=== PATIENT | female | born 1965 | race Caucasian/White ===

== ENCOUNTER 2018-09-21 15:59 | Emergency (ER) | payer MEDICARE, MEDICAID ==
[~2018-09-21] VITALS: Ht 152.4 cm; Wt 96.6 kg
--- NOTE | 2018-09-21 16:30 | NUR ---
PT BIB PA WITH A C/O PAIN WITH URINATION AND C/O NECK PAIN. PT WAS TRIAGED AND TAKEN TO ER 13. PT WAS PLACED ON THE MONITOR AND CONTINUOUS PULSE OX. URINE SAMPLE WAS OBTAINED.
[2018-09-21 16:56] LABS: APPEARANCE,URINE Clear (CLEAR); BILIRUBIN,URINE Negative (NEGATIVE); BLOOD, URINE Negative Ery/uL (NEGATIVE); COLOR,URINE Yellow (YELLOW); KETONES,URINE Negative (NEGATIVE); LEUKOCYTE ESTERASE ,URINE Negative (NEGATIVE); NITRITE, URINE Negative (NEGATIVE); PROTEIN,URINE Negative (NEGATIVE); UGLUCOSE 250 MG/DL mg/dL (NEGATIVE); UROBILINOGEN,URINE 0.2 EU/dL (0.2)
--- NOTE | 2018-09-21 17:20 | NUR ---
CALLED [facility] FOR TRANSPORT BACK TO [facility], ETA [id number], TRIP# [id number]
--- NOTE | 2018-09-21 17:46 | NUR ---
PT APPEARS TO BE RESTING COMFORTABLY WITH NO S/S OF PAIN OR DISTRESS. PT DENIES NECK PAIN AT THIS TIME.
--- NOTE | 2018-09-21 17:54 | NUR ---
Pt ambulated to the bathroom with a steady gait/using her walker.
--- NOTE | 2018-09-21 17:56 | NUR ---
Pt ambulated back to ER 13 using her walker.
--- NOTE | 2018-09-21 18:01 | NUR ---
Called RE: a food tray. Pt would like a sandwich. Dietary to bring over a tray.
--- NOTE | 2018-09-21 18:10 | NUR ---
PT REC'D A MEAL TRAY AND IS TOLERATING PO WELL.
[2018-09-21 18:41] VITALS: BP 150/77
--- NOTE | 2018-09-21 18:42 | NUR ---
[facility] EMT'S ARRIVED. REPORT WAS GIVEN. Patient discharged to home in stable condition. Written and verbal after care instructions given. Patient verbalizes understanding of instruction. COPY OF THE LABS WERE GIVEN TO THE EMT'S. PT LEFT VIA AMBULANCE. VSS.
== END 2018-09-21 18:41 | disposition home or self-care (01) ==
LOC: ER 16:05
DX: G89.29 Other chronic pain (principal); M54.2 Cervicalgia; I10 Essential (primary) hypertension; E78.5 Hyperlipidemia, unspecified; E11.9 Type 2 diabetes mellitus without complications; F32.9 Major depressive disorder, single episode, unspecified; Z98.890 Other specified postprocedural states
CPT/HCPCS: 81000-TC; 84703-TC

== ENCOUNTER 2019-05-25 18:59 | Emergency (ER) | payer MEDICARE, OTHER ==
[~2019-05-25] VITALS: Ht 152.4 cm; Wt 86.2 kg
--- NOTE | 2019-05-25 20:30 | NUR ---
PT BIB PA WITH A C/O VAGINAL PAIN AND BURNING WITH URINATION AND DIARRHEA X1 WEEK. PT TRIED TO GIVE A URINE SAMPLE UPON ARRIVAL, BUT WAS NOT SUCCESSFUL. PT IS CALM AND COOPERATIVE. NO S/S OF DISTRESS NOTED.
--- NOTE | 2019-05-25 20:42 | NUR ---
IN AND OUT CATH DONE AT THE BEDSIDE. APPROX 400MG PALE YELLOW URINE OUTPUT NOTED. SAMPLE SENT TO LAB.
[2019-05-25 20:48] LABS: BILIRUBIN,URINE Negative (NEGATIVE); BLOOD, URINE Trace-lysed Ery/uL (NEGATIVE); COLOR,URINE Yellow (YELLOW); KETONES,URINE Negative (NEGATIVE); LEUKOCYTE ESTERASE ,URINE Negative (NEGATIVE); NITRITE, URINE Negative (NEGATIVE); PH,URINE 5.5 (5.0-8.0); PROTEIN,URINE 100 mg/dl (NEGATIVE); UGLUCOSE 500 MG/DL mg/dL (NEGATIVE); UROBILINOGEN,URINE 0.2 EU/dL (0.2)
[2019-05-25 20:50] LABS: APPEARANCE,URINE SLIGHTLY CLOUDY (CLEAR)
[2019-05-25 21:05] LABS: BACTERIA,URINE 2+ /HPF (None Seen)
[2019-05-25 21:06] LABS: MUCUS,URINE Many /LPF (None Seen); SQUAMOUS EPITHELIAL CELL,UR Moderate /HPF (None Seen); URINE AMORPHOUS URATE Many /HPF (None Seen)
[2019-05-25 21:38] LABS: CALCIUM, SERUM 9.7 mg/dL (8.5-10.1); CREATININE 1.2 mg/dL (0.6-1.3); POTASSIUM 4.3 mmol/L (3.5-5.1)
[2019-05-25 21:43] LABS: BASOPHILS % (AUTO) 0.5 % (0.0-2.0); EOSINOPHILS % (AUTO) 1.3 % (0.0-6.0); HEMATOCRIT 37 % (33-45); HEMOGLOBIN 11.8 g/dL (11.5-14.8); LYMPHOCYTES # (AUTO) 0.7 /CMM (0.8-4.8); LYMPHOCYTES % (AUTO) 7.4 % (20.0-44.0); MEAN CORPUSCULAR HGB CONC 32 g/dl (31.0-36.0); MEAN CORPUSCULAR VOLUME 72 fL (82-100); MONOCYTES # (AUTO) 0.5 /CMM (0.1-1.30); MONOCYTES % (AUTO) 5.8 % (2.0-12.0); NEUTROPHILS # (AUTO) 7.8 /CMM (1.8-8.9); PLATELET COUNT (AUTO) 189 /CMM (150-450); WHITE BLOOD COUNT (AUTO) 9.2 K/uL (4.3-11.0)
[2019-05-25 22:25] LABS: LYMPHOCYTES % (MANUAL) 4 % (16-48); MONOCYTES % (MANUAL) 3 % (0-11.0); NEUTROPHILS % (MANUAL) 93 (42-76)
--- NOTE | 2019-05-25 22:25 | NUR ---
PT APPEARS TO BE RESTING COMFORTABLY WITH NO S/S OF PAIN OR DISTRESS.
--- NOTE | 2019-05-25 22:31 | NUR ---
[facility] eta [id number]
--- NOTE | 2019-05-25 23:10 | NUR ---
PT AMBULATED TO THE BATHROOM WITH HER WALKER. PT AMBULATED WITH A STEADY GAIT. PT IS TRANSPORT HOME.
--- NOTE | 2019-05-25 23:20 | NUR ---
PT RETURNED TO ER 16 AND APPEARS TO BE RESTING COMFORTABLY.
[2019-05-26 00:47] VITALS: BP 138/82
== END 2019-05-26 00:48 | disposition home or self-care (01) ==
LOC: ER 19:03
DX: N39.0 Urinary tract infection, site not specified (principal); R19.7 Diarrhea, unspecified; I10 Essential (primary) hypertension; F32.9 Major depressive disorder, single episode, unspecified; E11.9 Type 2 diabetes mellitus without complications; E78.5 Hyperlipidemia, unspecified; Z98.890 Other specified postprocedural states
CPT/HCPCS: 36415; 80048-TC; 81000-TC; 85025-TC; 87086-TC